=== PATIENT | male | born 1945 | race Caucasian/White ===

== ENCOUNTER 2016-08-17 18:54 | Emergency (ER) | payer MEDICARE ==
[~2016-08-17] VITALS: Ht 177.8 cm; Wt 85.0 kg
[~2016-08-17 18:54] MED LIST: AMIO200T PO; ASPI-1159 PO; CARV3.1242 PO; CLON0.5T4 PO; FLUO20CA33 PO; FURO20TA4 PO; GABA-533 PO; LOSA25TA12 PO; LOV60 SQ; POLY17PO3 PO; PRAV20TA57 PO; WARF3TAB28 PO; WARF7.5T22 PO; amiodarone PO; entresto PO
[2016-08-17] MEDS ORDERED: ONDANSETRON 4MG ODT PO ONE (19:15)
[2016-08-17] MEDS ORDERED: LACTULOSE 20G/30ML UDC PO ONE (19:15)
[2016-08-17] MEDS ORDERED: CARISOPRODOL 350 MG TABLET PO ONE (19:15)
[2016-08-17] MEDS ORDERED: KETOROLAC 60MG/2ML VIAL IM ONE (19:15)
[2016-08-17] MEDS ORDERED: MAGNESIUM CITRATE 300ML SOLUTION PO ONE (19:30)
[2016-08-17 21:07] VITALS: BP 104/76
== END 2016-08-17 21:08 | disposition home or self-care (01) ==
LOC: ER 18:55
DX: M54.5 Low back pain (principal); K59.00 Constipation, unspecified; I25.10 Atherosclerotic heart disease of native coronary artery without angina pectoris; J44.9 Chronic obstructive pulmonary disease, unspecified; F32.9 Major depressive disorder, single episode, unspecified; I50.9 Heart failure, unspecified; Z95.2 Presence of prosthetic heart valve; Z79.01 Long term (current) use of anticoagulants; Z95.0 Presence of cardiac pacemaker
CPT/HCPCS: 74000; 96372; 99284; J1885; Q0162

== ENCOUNTER → 2016-10-20 | Outpatient (CLI) | payer MEDICARE | END | disposition home or self-care (01) | LOC: RAD 16:12 | PROVIDERS: ATTEND Specialist | DX: M25.512 Pain in left shoulder (principal) | CPT/HCPCS: 73030 ==

== ENCOUNTER 2017-06-08 06:26 | Inpatient (IN) | payer MEDICARE ==
[~2017-06-08] VITALS: Ht 188 cm; Wt 83.9 kg
[2017-06-08] MEDS ORDERED: FUROSEMIDE 40MG/4ML VIAL IV STA (08:03)
[2017-06-08 08:50] LABS: HEMATOCRIT. 33.4 % (42.0-52.0); HEMOGLOBIN. 11.3 g/dL (14.0-18.0); MEAN CORPUSCULAR HEMOGLOBIN 32.2 pg (28.0-32.0); MEAN CORPUSCULAR VOLUME 94.8 fL (80.0-94.0); MEAN PLATELET VOLUME 10.4 fl (7.4-10.4); PLATELET 181 x1000/uL (130-400); RED BLOOD CELL COUNT 3.52 mill/uL (4.7-6.1); RED CELL DISTRIBUTION WIDTH 14.6 % (11.6-14.6)
[2017-06-08 09:01] LABS: CHLORIDE 111 mEq/L (98-107); D-DIMER 0.4 mg/L FEU (<0.50); INR 3.8; PARTIAL THROMBOPLASTIN TIME 37.9 sec (23.4-31.0)
[2017-06-08 09:59] LABS: PLATELET ESTIMATE NORMAL
[2017-06-08 10:15] LABS: CLARITY URINE CLEAR (CLEAR); COLOR URINE YELLOW (YELLOW); KETONES URINE NEGATIVE (NEGATIVE); LEUKOCYTE ESTERASE URINE NEGATIVE (NEGATIVE); NITRITE URINE NEGATIVE (NEGATIVE); OCCULT BLOOD URINE 2+ (NEGATIVE); PH URINE 6.5 (4.5-8.0); PROTEIN URINE NEGATIVE (NEGATIVE); SPECIFIC GRAVITY URINE 1.009 (1.005-1.030); UROBILINOGEN URINE 0.2 E.U./dL (0.2-1.0)
[2017-06-08] MEDS: SERTRALINE HCL 100MG TABLET PO SCH (14:00)
[2017-06-08] MEDS: AMIODARONE HCL 200 MG TABLET PO SCH (14:00)
[2017-06-08 15:56] LABS: *AMPHETAMINES SCREEN URINE NEGATIVE (NEGATIVE); *BARBITURATES SCREEN URINE NEGATIVE (NEGATIVE); *BENZODIAZEPINES SCREEN URINE NEGATIVE (NEGATIVE); *COCAINE SCREEN URINE NEGATIVE (NEGATIVE); METHADONE URINE SCREEN NEGATIVE (NEGATIVE)
[2017-06-08] MEDS: LEVOTHYROXINE SODIUM 50MCG TABLET PO SCH (15:56)
[2017-06-08 15:57] LABS: CANNABINOID URINE SCREEN NEGATIVE (NEGATIVE); OPIATES URINE SCREEN NEGATIVE (NEGATIVE); PHENCYCLIDINE URINE SCREEN NEGATIVE (NEGATIVE)
[2017-06-08] MEDS ORDERED: CLONIDINE 0.1MG TABLET PO PRN ×2 (15:57→16:15)
[2017-06-08 15:58] VITALS: BP 125/87
[2017-06-08] MEDS ORDERED: MAGNESIUM/ALUMINUM HYDROXIDE/SIMETHICONE 30ML UDC PO PRN (16:15)
[2017-06-08] MEDS ORDERED: ACETAMINOPHEN 325MG TABLET PO PRN (16:15)
[2017-06-08] MEDS ORDERED: ONDANSETRON HCL 4MG/2ML VIAL IV PRN (16:15)
[2017-06-08] MEDS ORDERED: LORAZEPAM 0.5MG TABLET PO PRN (16:15)
[2017-06-08] MEDS ORDERED: DIPHENHYDRAMINE 50MG/ML VIAL IV PRN (16:15)
[2017-06-08] MEDS ORDERED: ZOLPIDEM TARTRATE 5MG TABLET PO PRN (16:15)
[2017-06-08] MEDS ORDERED: INFLUENZA VIRUS VACCINE 0.5ML SYR IM ONE (16:45)
[2017-06-08] MEDS: FUROSEMIDE 40MG/4ML VIAL IV SCH (16:55)
[2017-06-08] MEDS: CLONAZEPAM 0.5MG TABLET PO SCH (17:00)
[2017-06-08 20:00] VITALS: BP 106/74
[2017-06-08] MEDS: CARVEDILOL 3.125 MG TABLET PO SCH (21:00)
[2017-06-08] MEDS: SODIUM CHLORIDE 0.9% INJ 3ML FLUSH IVF SCH (21:06)
[2017-06-08] MEDS: ENTRESTO PO SCH (21:06)
[2017-06-08 23:58] VITALS: BP 122/82
[2017-06-09 04:56] VITALS: BP 130/84
[2017-06-09] MEDS: SODIUM CHLORIDE 0.9% INJ 3ML FLUSH IVF SCH (06:31)
[2017-06-09 06:59] LABS: D-DIMER 0.51 mg/L FEU (<0.50); INR 3.4; PROTHROMBIN TIME 35.9 sec (9.4-11.6)
[2017-06-09 07:04] LABS: CHLORIDE 109 mEq/L (98-107)
[2017-06-09 07:09] LABS: HEMATOCRIT. 36.9 % (42.0-52.0); HEMOGLOBIN. 12.3 g/dL (14.0-18.0); MEAN CORPUSCULAR HEMOGLOBIN 31.7 pg (28.0-32.0); MEAN CORPUSCULAR VOLUME 95.1 fL (80.0-94.0); PLATELET 184 x1000/uL (130-400); RED BLOOD CELL COUNT 3.88 mill/uL (4.7-6.1); RED CELL DISTRIBUTION WIDTH 14.3 % (11.6-14.6)
[2017-06-09 07:27] LABS: CREATINE KINASE 174 IU/L (39-308); CREATINE KINASE MB FRACTION 3.3 ng/mL (0.5-3.6); HDL CHOLESTEROL 43 mg/dL (40-59); LDL CHOLESTEROL 135 mg/dL (5-100)
[2017-06-09 07:48] VITALS: BP 129/90
[2017-06-09] MEDS: SERTRALINE HCL 100MG TABLET PO SCH (08:19)
[2017-06-09] MEDS: CLONAZEPAM 0.5MG TABLET PO SCH (08:19)
[2017-06-09] MEDS: LEVOTHYROXINE SODIUM 50MCG TABLET PO SCH (08:19)
[2017-06-09] MEDS: CARVEDILOL 3.125 MG TABLET PO SCH (08:19)
[2017-06-09] MEDS: AMIODARONE HCL 200 MG TABLET PO SCH (08:19)
[2017-06-09] MEDS: FUROSEMIDE 40MG/4ML VIAL IV SCH (08:19)
[2017-06-09] MEDS: ENTRESTO PO SCH (08:23)
[2017-06-09] MEDS ORDERED: POTASSIUM CHLORIDE 20MEQ TABLET SR PO SCH ×2 (09:00→11:15)
[2017-06-09 11:23] VITALS: BP 129/90
[2017-06-09 16:16] LABS: PLATELET ESTIMATE NORMAL
== END 2017-06-09 11:55 | disposition home or self-care (01) | DRG 291 ==
LOC: ER 06:26 → 8WST 11:15 → EDBEDREQTM 11:18 → EDBEDREQ 11:18 → ENRESERV 13:08
PROVIDERS: ADMIT Internal Medicine; ATTEND Internal Medicine
DX: I13.0 Hypertensive heart and chronic kidney disease with heart failure and stage 1 through stage 4 chronic kidney disease, or unspecified chronic kidney disease (principal); I50.23 Acute on chronic systolic (congestive) heart failure; E87.0 Hyperosmolality and hypernatremia; I48.0 Paroxysmal atrial fibrillation; I42.0 Dilated cardiomyopathy; N18.9 Chronic kidney disease, unspecified; F41.9 Anxiety disorder, unspecified; I51.3 Intracardiac thrombosis, not elsewhere classified; E78.00 Pure hypercholesterolemia, unspecified; F32.9 Major depressive disorder, single episode, unspecified; I25.10 Atherosclerotic heart disease of native coronary artery without angina pectoris; I25.5 Ischemic cardiomyopathy; I45.10 Unspecified right bundle-branch block; E87.6 Hypokalemia; Z79.01 Long term (current) use of anticoagulants; Z82.49 Family history of ischemic heart disease and other diseases of the circulatory system; Z87.891 Personal history of nicotine dependence; Z95.2 Presence of prosthetic heart valve; Z95.810 Presence of automatic (implantable) cardiac defibrillator; Z79.82 Long term (current) use of aspirin; Z79.899 Other long term (current) drug therapy
CPT/HCPCS: 36415; 71045; 80053; 80061; 80305; 81003; 82550; 82553; 83605; 83735; 83880; 84443; 84484; 85025; 85379; 85610; 85730; 87040; 93005; 93970; 96374; 99285; J1940

== ENCOUNTER 2018-06-23 08:38 | Emergency (ER) | payer MEDICARE ==
[~2018-06-23] VITALS: Ht 182.9 cm; Wt 73.0 kg
[~2018-06-23 08:38] MED LIST changes: +ALPR0.5T PO; -AMIO200T PO; +AMOX250S70 PO; +CLON0.5T12 PO; -CLON0.5T4 PO; -FLUO20CA33 PO; +FLUO40CA49 PO; -GABA-533 PO; +LEVO50TA8 PO; -LOSA25TA12 PO; -POLY17PO3 PO; -PRAV20TA57 PO; +SACU1TAB PO; +TEMA30CA PO; +VENL150C2 PO; -amiodarone PO; -entresto PO
[2018-06-23 09:36] LABS: CHLORIDE 105 mEq/L (98-107)
[2018-06-23 09:39] LABS: HEMATOCRIT. 39.2 % (42.0-52.0); HEMOGLOBIN. 13.2 g/dL (14.0-18.0); MEAN CORPUSCULAR HEMOGLOBIN 32.9 pg (28.0-32.0); MEAN CORPUSCULAR VOLUME 97.7 fL (80.0-94.0); MEAN PLATELET VOLUME 10.9 fl (7.4-10.4); PLATELET 181 x1000/uL (130-400); RED BLOOD CELL COUNT 4.01 mill/uL (4.7-6.1); RED CELL DISTRIBUTION WIDTH 13.6 % (11.6-14.6)
[2018-06-23 09:41] LABS: PROTHROMBIN TIME 40.3 sec (9.6-11.0)
[2018-06-23 10:12] LABS: PLATELET ESTIMATE NORMAL
[2018-06-23 10:30] LABS: INR 4.2
[2018-06-23] MEDS ORDERED: NA PHOS,M-B/NA PHOS,DI-BA ENEMA 118ML PR ONE (11:30)
[2018-06-23 11:51] LABS: CLARITY URINE CLEAR (CLEAR); COLOR URINE YELLOW (YELLOW); KETONES URINE NEGATIVE (NEGATIVE); LEUKOCYTE ESTERASE URINE NEGATIVE (NEGATIVE); NITRITE URINE NEGATIVE (NEGATIVE); OCCULT BLOOD URINE 2+ (NEGATIVE); PH URINE 7.5 (4.5-8.0); PROTEIN URINE NEGATIVE (NEGATIVE); SPECIFIC GRAVITY URINE 1.007 (1.005-1.030); UROBILINOGEN URINE 0.2 E.U./dL (0.2-1.0)
[2018-06-23 13:56] VITALS: BP 124/71
== END 2018-06-23 13:55 | disposition home or self-care (01) ==
LOC: ER 08:38
DX: K59.00 Constipation, unspecified (principal); R79.1 Abnormal coagulation profile; K80.20 Calculus of gallbladder without cholecystitis without obstruction; M48.57XA Collapsed vertebra, not elsewhere classified, lumbosacral region, initial encounter for fracture; Z95.810 Presence of automatic (implantable) cardiac defibrillator; I11.0 Hypertensive heart disease with heart failure; I50.9 Heart failure, unspecified; Z79.899 Other long term (current) drug therapy; Z79.82 Long term (current) use of aspirin
CPT/HCPCS: 36415; 74176; 99284

== ENCOUNTER 2018-07-14 11:46 | Inpatient (IN) | payer MEDICARE ==
[~2018-07-14] VITALS: Ht 180.3 cm; Wt 72.6 kg
[2018-07-14 13:07] LABS: HEMATOCRIT. 35.6 % (42.0-52.0); HEMOGLOBIN. 12.3 g/dL (14.0-18.0); MEAN CORPUSCULAR HEMOGLOBIN 33.1 pg (28.0-32.0); MEAN CORPUSCULAR VOLUME 95.9 fL (80.0-94.0); MEAN PLATELET VOLUME 10.2 fl (7.4-10.4); PLATELET 225 x1000/uL (130-400); RED BLOOD CELL COUNT 3.71 mill/uL (4.7-6.1)
[2018-07-14 13:14] LABS: CHLORIDE 99 mEq/L (98-107)
[2018-07-14 13:30] LABS: PLATELET ESTIMATE NORMAL
[2018-07-14] MEDS ORDERED: ENOXAPARIN 80MG/0.8ML SYR SUBCUT ONE (13:45)
[2018-07-14] MEDS ORDERED: ASPIRIN 325MG EC TABLET PO ONE (13:45)
[2018-07-14 16:00] VITALS: BP 149/85
[2018-07-14 16:06] VITALS: BP 149/85
[2018-07-14 20:00] VITALS: BP 118/61
[2018-07-14] MEDS ORDERED: CLONIDINE 0.1MG TABLET PO PRN (20:00)
[2018-07-14] MEDS ORDERED: ONDANSETRON HCL 4MG/2ML INJ IV PRN (20:00)
[2018-07-14] MEDS ORDERED: MAGNESIUM/ALUMINUM HYDROXIDE/SIMETHICONE 30ML UDC PO PRN (20:00)
[2018-07-14] MEDS ORDERED: DOCUSATE SODIUM 100MG CAPSULE PO PRN (20:00)
[2018-07-14] MEDS ORDERED: ACETAMINOPHEN 325MG TABLET PO PRN (20:00)
[2018-07-14] MEDS ORDERED: HYDROCODONE/ACETAMINOPHEN 5/325MG TABLET PO PRN (20:00)
[2018-07-14] MEDS ORDERED: GUAIFENESIN 200MG/10ML SUGAR FREE UDC PO PRN (20:00)
[2018-07-14] MEDS: CARVEDILOL 3.125 MG TABLET PO SCH (20:23)
[2018-07-14] MEDS ORDERED: MORPHINE SULFATE 4 MG/ML CPJ (NOT FOR IM USE) IV PRN (20:30)
[2018-07-14] MEDS: ALPRAZOLAM 0.5 MG TABLET PO PRN (20:50)
[2018-07-14] MEDS: NITROGLYCERIN OINT 1GM/INCH UDPKT TD SCH (21:41)
[2018-07-15] VITALS (7 sets, daily range): BP systolic 95–130; BP diastolic 48–80
[2018-07-15 06:18] LABS: HEMATOCRIT. 32.6 % (42.0-52.0); HEMOGLOBIN. 11.4 g/dL (14.0-18.0); MEAN CORPUSCULAR HEMOGLOBIN 33.3 pg (28.0-32.0); MEAN CORPUSCULAR VOLUME 94.9 fL (80.0-94.0); MEAN PLATELET VOLUME 10.4 fl (7.4-10.4); PLATELET 202 x1000/uL (130-400); RED BLOOD CELL COUNT 3.44 mill/uL (4.7-6.1); RED CELL DISTRIBUTION WIDTH 12.8 % (11.6-14.6)
[2018-07-15 06:42] LABS: CHLORIDE 104 mEq/L (98-107)
[2018-07-15 06:51] LABS: LDL CHOLESTEROL 77 mg/dL (5-100)
[2018-07-15 06:53] LABS: HDL CHOLESTEROL 46 mg/dL (40-59)
[2018-07-15] MEDS: LEVOTHYROXINE SODIUM 50MCG TABLET PO SCH (08:38)
[2018-07-15] MEDS: ASPIRIN 81MG EC TABLET PO SCH (08:38)
[2018-07-15] MEDS: FUROSEMIDE 40MG TABLET PO SCH (08:39)
[2018-07-15] MEDS: LORAZEPAM 2MG/ML CPJ IV PRN (08:50)
[2018-07-15] MEDS ORDERED: MEDICATION NOT ON FORMULARY EA (Furosemide 40 MG) PO SCH (09:00)
[2018-07-15] MEDS ORDERED: ENOXAPARIN 40MG/0.4ML SYR SUBCUT SCH (09:00)
[2018-07-15 09:10] LABS: PLATELET ESTIMATE NORMAL
[2018-07-15] MEDS ORDERED: FLUOXETINE HCL 20MG CAPSULE PO SCH (11:15)
[2018-07-15] MEDS ORDERED: VENLAFAXINE HCL 75MG TABLET PO SCH (11:30)
[2018-07-15] MEDS: ALPRAZOLAM 0.5 MG TABLET PO PRN (12:18)
[2018-07-15 13:39] LABS: INR 1.5; PROTHROMBIN TIME 15.4 sec (9.6-11.0)
[2018-07-15] MEDS: CLONAZEPAM 0.5MG TABLET PO PRN (13:44)
[2018-07-15] MEDS ORDERED: WARFARIN SODIUM 7.5MG TABLET PO NR (18:00)
[2018-07-15] MEDS ORDERED: WARFARIN SODIUM 7.5MG TABLET PO SCH (18:00)
[2018-07-15] MEDS: ENOXAPARIN 80MG/0.8ML SYR SUBCUT SCH (20:45)
[2018-07-15] MEDS: CARVEDILOL 3.125 MG TABLET PO SCH ×2 (20:46→20:55)
[2018-07-15] MEDS: NITROGLYCERIN OINT 1GM/INCH UDPKT TD SCH (21:19)
[2018-07-16] VITALS (7 sets, daily range): BP systolic 96–123; BP diastolic 44–73
[2018-07-16] MEDS: LORAZEPAM 2MG/ML CPJ IV PRN ×2 (00:43→17:18)
[2018-07-16] MEDS: NITROGLYCERIN OINT 1GM/INCH UDPKT TD SCH ×3 (05:08→21:51)
[2018-07-16] MEDS: LEVOTHYROXINE SODIUM 50MCG TABLET PO SCH (06:10)
[2018-07-16 07:08] LABS: D-DIMER 0.33 mg/L FEU (<0.50); INR 1.4; PROTHROMBIN TIME 13.9 sec (9.6-11.0)
[2018-07-16 07:19] LABS: HEMATOCRIT. 35.2 % (42.0-52.0); HEMOGLOBIN. 12.2 g/dL (14.0-18.0); MEAN CORPUSCULAR HEMOGLOBIN 32.6 pg (28.0-32.0); MEAN CORPUSCULAR VOLUME 94.3 fL (80.0-94.0); MEAN PLATELET VOLUME 10.4 fl (7.4-10.4); PLATELET 217 x1000/uL (130-400); RED BLOOD CELL COUNT 3.73 mill/uL (4.7-6.1); RED CELL DISTRIBUTION WIDTH 13.1 % (11.6-14.6)
[2018-07-16 07:23] LABS: CHLORIDE 103 mEq/L (98-107)
[2018-07-16 07:32] LABS: CREATINE KINASE 115 IU/L (39-308)
[2018-07-16 07:36] LABS: CREATINE KINASE MB FRACTION 3.4 ng/mL (0.5-3.6)
[2018-07-16] MEDS: ENOXAPARIN 80MG/0.8ML SYR SUBCUT SCH ×2 (09:13→21:50)
[2018-07-16] MEDS: ASPIRIN 81MG EC TABLET PO SCH (09:13)
[2018-07-16] MEDS: FUROSEMIDE 40MG TABLET PO SCH (09:13)
[2018-07-16 14:27] LABS: PLATELET ESTIMATE NORMAL
[2018-07-16] MEDS ORDERED: WARFARIN SODIUM 7.5MG TABLET PO SCH (18:00)
[2018-07-16] MEDS: CARVEDILOL 3.125 MG TABLET PO SCH (21:50)
[2018-07-16] MEDS: ALPRAZOLAM 0.5 MG TABLET PO PRN (21:51)
[2018-07-17] VITALS: BP 90/48
[2018-07-17 04:00] VITALS: BP 113/63
[2018-07-17] MEDS: LEVOTHYROXINE SODIUM 50MCG TABLET PO SCH (07:02)
[2018-07-17] MEDS: NITROGLYCERIN OINT 1GM/INCH UDPKT TD SCH ×3 (07:03→21:32)
[2018-07-17 08:00] VITALS: BP 115/66
[2018-07-17] MEDS: CLONAZEPAM 0.5MG TABLET PO PRN (09:10)
[2018-07-17] MEDS: FUROSEMIDE 40MG TABLET PO SCH (09:10)
[2018-07-17] MEDS: ASPIRIN 81MG EC TABLET PO SCH (09:10)
[2018-07-17] MEDS: ENOXAPARIN 80MG/0.8ML SYR SUBCUT SCH ×2 (09:11→20:45)
[2018-07-17 12:00] VITALS: BP 105/59
[2018-07-17 13:56] LABS: INR 1.3; PROTHROMBIN TIME 13.6 sec (9.6-11.0)
[2018-07-17] MEDS: LORAZEPAM 2MG/ML CPJ IV PRN (15:07)
[2018-07-17 16:00] VITALS: BP 113/53
[2018-07-17] MEDS ORDERED: WARFARIN SODIUM 4MG TABLET PO SCH (18:00)
[2018-07-17 20:00] VITALS: BP 110/59
[2018-07-17] MEDS: CARVEDILOL 3.125 MG TABLET PO SCH (20:45)
[2018-07-18] VITALS: BP 123/54
[2018-07-18 04:00] VITALS: BP 116/76
[2018-07-18] MEDS: LEVOTHYROXINE SODIUM 50MCG TABLET PO SCH (05:52)
[2018-07-18] MEDS: NITROGLYCERIN OINT 1GM/INCH UDPKT TD SCH ×3 (06:00→22:52)
[2018-07-18 07:05] LABS: INR 1.5; PROTHROMBIN TIME 14.7 sec (9.6-11.0)
[2018-07-18 08:00] VITALS: BP 126/75
[2018-07-18] MEDS: ASPIRIN 81MG EC TABLET PO SCH (09:04)
[2018-07-18] MEDS: FUROSEMIDE 40MG TABLET PO SCH (09:04)
[2018-07-18] MEDS: ENOXAPARIN 80MG/0.8ML SYR SUBCUT SCH ×2 (09:05→22:43)
[2018-07-18 12:00] VITALS: BP 139/77
[2018-07-18 16:00] VITALS: BP 125/87
[2018-07-18] MEDS ORDERED: WARFARIN SODIUM 4MG TABLET PO NR (18:00)
[2018-07-18 20:00] VITALS: BP 139/79
[2018-07-18] MEDS: CARVEDILOL 3.125 MG TABLET PO SCH (22:53)
[2018-07-19] VITALS: BP 153/101
[2018-07-19] MEDS: NITROGLYCERIN OINT 1GM/INCH UDPKT TD SCH ×2 (06:20→14:00)
[2018-07-19] MEDS: LEVOTHYROXINE SODIUM 50MCG TABLET PO SCH (06:20)
[2018-07-19 06:58] LABS: BASOPHILS % 0.9 % (0.0-2.0); EOSINOPHILS % 1.4 % (0.0-5.0); HEMATOCRIT. 38.4 % (42.0-52.0); HEMOGLOBIN. 13.4 g/dL (14.0-18.0); LYMPHOCYTES % 9.4 % (20.0-50.0); MEAN CORPUSCULAR HEMOGLOBIN 32.6 pg (28.0-32.0); MEAN CORPUSCULAR VOLUME 93.3 fL (80.0-94.0); MEAN PLATELET VOLUME 10.4 fl (7.4-10.4); MONOCYTES % 14.4 % (2.0-8.0); NEUTROPHILS % 73.9 % (40.0-76.0); PLATELET 242 x1000/uL (130-400); RED BLOOD CELL COUNT 4.12 mill/uL (4.7-6.1)
[2018-07-19 07:07] LABS: INR 1.6; PROTHROMBIN TIME 15.9 sec (9.6-11.0)
[2018-07-19 08:00] VITALS: BP 147/83
[2018-07-19] MEDS: ASPIRIN 81MG EC TABLET PO SCH (09:24)
[2018-07-19] MEDS: ENOXAPARIN 80MG/0.8ML SYR SUBCUT SCH (09:24)
[2018-07-19] MEDS: FUROSEMIDE 40MG TABLET PO SCH (09:24)
[2018-07-19 12:00] VITALS: BP 131/76
[2018-07-19 14:25] VITALS: BP 131/76
[2018-07-19] MEDS ORDERED: WARFARIN SODIUM 10MG TABLET PO SCH (18:00)
== END 2018-07-19 17:54 | DRG 880 ==
LOC: ER 11:46 → 6WST 13:42 → ENRESERV 14:00 → 6WST 15:38 → 8WST 07-15 18:59
PROVIDERS: ADMIT Hospitalist; ATTEND Hospitalist
DX: F41.1 Generalized anxiety disorder (principal); I42.0 Dilated cardiomyopathy; I48.0 Paroxysmal atrial fibrillation; F32.9 Major depressive disorder, single episode, unspecified; F14.10 Cocaine abuse, uncomplicated; I11.0 Hypertensive heart disease with heart failure; I25.10 Atherosclerotic heart disease of native coronary artery without angina pectoris; I35.1 Nonrheumatic aortic (valve) insufficiency; I50.9 Heart failure, unspecified; Z79.01 Long term (current) use of anticoagulants; Z87.891 Personal history of nicotine dependence; Z79.2 Long term (current) use of antibiotics; Z79.899 Other long term (current) drug therapy; Z59.0 Homelessness; Z95.810 Presence of automatic (implantable) cardiac defibrillator; Z95.2 Presence of prosthetic heart valve; I51.3 Intracardiac thrombosis, not elsewhere classified
CPT/HCPCS: 36415; 71045; 80048; 80061; 82550; 82553; 83735; 83880; 84443; 84484; 85379; 93005; 93970; 99285; J1650; J2060